=== PATIENT | female | born 1975 | race African-American/Black ===

== ENCOUNTER 2017-04-12 11:50 | Emergency (ER) | payer OTHER ==
[~2017-04-12] VITALS: Ht 160 cm; Wt 77.1 kg
[~2017-04-12 11:50] MED LIST: NOHOMEMEDICATIONS; NORCO 5-325 TA1 EACH PO; SULFACETAMIDE 115 M1 OP; VICOPROFEN 2001 EACH PO
[2017-04-12] MEDS ORDERED: TREXIMET 10-601 EACH PO (12:18)
[2017-04-12] MEDS ORDERED: AMITRIPTYLINE H25 M3 PO (12:18)
[2017-04-12] MEDS ORDERED: LIORESAL 10 MG10 MG PO (12:19)
[2017-04-12 13:39] LABS: ABSOLUTE NEUTROPHILS 4.6 thou/uL (1.4-8.2); BASOPHILS 1.3 % (0.0-2.0); EOSINOPHILS 1.9 % (0.0-3.0); HEMATOCRIT 41.6 % (37.0-47.0); HEMOGLOBIN 14.2 gm/dL (12.0-15.0); LYMPHOCYTES 36.4 % (24.0-44.0); MCH 30.2 pg (26.0-34.0); MCHC 34.1 g/dL (28.0-37.0); MCV 88.5 fL (80.0-100.0); MONOCYTES 5.5 % (1.0-8.0); PLATELET COUNT 396 thou/uL (150-400); POLYS 54.9 % (36.0-66.0); WBC 8.5 thou/uL (4.0-11.0)
[2017-04-12 13:48] LABS: CALCIUM 9.2 mg/dL (8.5-10.1); CREATININE 0.8 mg/dL (0.6-1.0); POTASSIUM 4.5 mmol/L (3.5-5.1)
[2017-04-12] MEDS ORDERED: BENTYL 20 MG TA20 M1 PO (15:21)
[2017-04-12] MEDS ORDERED: MOBIC15 MG PO (15:21)
[2017-04-12 15:41] VITALS: BP 123/78
== END 2017-04-12 15:44 | disposition home or self-care (01) ==
LOC: ER 11:50
PROVIDERS: Emergency Medicine
DX: N94.6 Dysmenorrhea, unspecified (principal); K62.5 Hemorrhage of anus and rectum

== ENCOUNTER 2017-06-19 10:08 | Emergency (ER) | payer OTHER ==
[~2017-06-19] VITALS: Ht 160 cm; Wt 72.6 kg
[~2017-06-19 10:08] MED LIST changes: +AMITRIPTYLINE H25 M3 PO; +BENTYL 20 MG TA20 M1 PO; +LIORESAL 10 MG10 MG PO; +MOBIC15 MG PO; +TREXIMET 10-601 EACH PO
[2017-06-19 10:53] VITALS: BP 126/97
[2017-06-19] MEDS ORDERED: IBUPROFEN 600600 M1 PO (10:54)
== END 2017-06-19 11:34 | disposition home or self-care (01) ==
LOC: ER 10:08
DX: S80.02XA Contusion of left knee, initial encounter (principal); S60.221A Contusion of right hand, initial encounter; F17.210 Nicotine dependence, cigarettes, uncomplicated; Z88.8 Allergy status to other drugs, medicaments and biological substances; W18.39XA Other fall on same level, initial encounter; Y93.89 Activity, other specified; Y92.89 Other specified places as the place of occurrence of the external cause; Y99.8 Other external cause status

== ENCOUNTER 2018-03-12 17:38 | Emergency (ER) | payer OTHER ==
[~2018-03-12] VITALS: Ht 162.6 cm; Wt 68.0 kg
[~2018-03-12 17:38] MED LIST changes: +IBUPROFEN 600600 M1 PO
[2018-03-12 19:10] LABS: ABSOLUTE NEUTROPHILS 4.5 thou/uL (1.4-8.2); EOSINOPHILS 3.6 % (0.0-3.0); HEMOGLOBIN 13.7 gm/dL (12.0-15.0); LYMPHOCYTES 40.4 % (24.0-44.0); MCH 29.4 pg (26.0-34.0); MCHC 33.3 g/dL (28.0-37.0); MCV 88.5 fL (80.0-100.0); PLATELET COUNT 449 thou/uL (150-400); RBC 4.64 mil/uL (4.20-5.00); RDW 15.1 % (10.5-14.5); WBC 9.2 thou/uL (4.0-11.0)
[2018-03-12 19:14] LABS: CREATININE 0.8 mg/dL (0.6-1.0); POTASSIUM 3.9 mmol/L (3.5-5.1)
[2018-03-12 19:20] LABS: ALBUMIN 3.9 g/dL (3.4-5.0); TOTAL BILIRUBIN 0.4 mg/dL (<0.1-1.0); TOTAL PROTEIN 7.7 g/dL (6.4-8.2)
[2018-03-12] MEDS ORDERED: IBUPROFEN 400400 M2 PO (21:18)
[2018-03-12] MEDS ORDERED: MIRALAX17 GM PO (21:18)
[2018-03-12 21:21] LABS: URINE BILIRUBIN NEGATIVE (Negative); URINE BLOOD 3+ (Negative); URINE CLARITY CLOUDY; URINE COLOR YELLOW; URINE GLUCOSE-RANDOM* NEGATIVE (Negative); URINE KETONES NEGATIVE (Negative); URINE LEUKOCYTES-REFLEX NEGATIVE (Negative); URINE NITRITE-REFLEX NEGATIVE (Negative); URINE PROTEIN (DIPSTICK) NEGATIVE (Negative); URINE SPECIFIC GRAVITY 1.025 (1.005-1.035); URINE UROBILINOGEN 0.2 E.U./dl (0.2-1.0)
[2018-03-12 21:27] LABS: AMORPHOUS URATES Many /LPF (None Seen); BACTERIA-REFLEX None Seen /HPF (None Seen); CASTS None Seen /LPF (None Seen); CRYSTALS None Seen /LPF (None Seen); MUCUS None Seen strn/LPF (None Seen); SQUAMOUS 0-3 Few /LPF (0-3); URINE RBC 3-10 Few /HPF (0-2); URINE WBC-REFLEX 0-5 Rare /HPF (0-5)
[2018-03-12 21:44] VITALS: BP 122/71
== END 2018-03-12 21:45 | disposition home or self-care (01) ==
LOC: ER 17:38
PROVIDERS: Student in an Organized Health Care Education/Training Program
DX: D25.9 Leiomyoma of uterus, unspecified (principal); K59.00 Constipation, unspecified; F17.210 Nicotine dependence, cigarettes, uncomplicated; Z88.8 Allergy status to other drugs, medicaments and biological substances

== ENCOUNTER 2018-08-18 16:42 | Emergency (ER) | payer OTHER ==
[~2018-08-18] VITALS: Ht 160 cm; Wt 68.0 kg
[~2018-08-18 16:42] MED LIST changes: +IBUPROFEN 400400 M2 PO; +MIRALAX17 GM PO
[2018-08-18 17:01] LABS: URINE BILIRUBIN NEGATIVE (Negative); URINE BLOOD 1+ (Negative); URINE CLARITY CLEAR; URINE COLOR YELLOW; URINE GLUCOSE-RANDOM* NEGATIVE (Negative); URINE KETONES NEGATIVE (Negative); URINE NITRITE-REFLEX NEGATIVE (Negative); URINE PROTEIN (DIPSTICK) NEGATIVE (Negative); URINE SPECIFIC GRAVITY <= 1.005 (1.005-1.035); URINE UROBILINOGEN 0.2 E.U./dl (0.2-1.0)
[2018-08-18 17:03] LABS: URINE LEUKOCYTES-REFLEX 1+ (Negative)
[2018-08-18 17:12] LABS: BACTERIA-REFLEX 1-9 Few /HPF (None Seen); CASTS None Seen /LPF (None Seen); CRYSTALS None Seen /LPF (None Seen); MUCUS None Seen strn/LPF (None Seen); SQUAMOUS 0-3 Few /LPF (0-3); URINE WBC-REFLEX 0-5 Rare /HPF (0-5)
[2018-08-18 20:00] LABS: BASOPHILS 1.8 % (0.0-2.0); EOSINOPHILS 2.7 % (0.0-3.0); HEMATOCRIT 39.1 % (37.0-47.0); HEMOGLOBIN 13.2 gm/dL (12.0-15.0); LYMPHOCYTES 38.9 % (24.0-44.0); MCH 30.1 pg (26.0-34.0); MCHC 33.9 g/dL (28.0-37.0); MCV 88.9 fL (80.0-100.0); MONOCYTES 5.5 % (1.0-8.0); PLATELET COUNT 379 thou/uL (150-400); POLYS 51.1 % (36.0-66.0); RDW 14.5 % (10.5-14.5); WBC 9.7 thou/uL (4.0-11.0)
[2018-08-18 20:06] LABS: CALCIUM 8.6 mg/dL (8.5-10.1); POTASSIUM 3.9 mmol/L (3.5-5.1)
[2018-08-18 20:12] LABS: ALBUMIN 3.8 g/dL (3.4-5.0); TOTAL BILIRUBIN 0.3 mg/dL (<0.1-1.0); TOTAL PROTEIN 7.3 g/dL (6.4-8.2)
[2018-08-18 22:58] VITALS: BP 119/73
== END 2018-08-18 22:59 | disposition home or self-care (01) ==
LOC: ER 16:42
PROVIDERS: Emergency Medicine
DX: R10.32 Left lower quadrant pain (principal); R51 Headache; F17.210 Nicotine dependence, cigarettes, uncomplicated